=== PATIENT | male | born 1990 | race African-American/Black ===

== ENCOUNTER 2022-05-27 10:06 | Inpatient (IN) | payer OTHER ==
[~2022-05-27] VITALS: Ht 167.6 cm; Wt 77.8 kg
[2022-05-27] MEDS ORDERED: ACET-3385 PO (10:21)
[2022-05-27] MEDS ORDERED: CEPH-558 PO (10:21)
[2022-05-27] MEDS ORDERED: SULF-261 PO (10:21)
[2022-05-27] MEDS ORDERED: IBUP-2071 PO (10:21)
[2022-05-27] MEDS ORDERED: ESCI-8 PO (10:21)
[2022-05-27] MEDS ORDERED: TRAZ-252 PO (10:21)
[2022-05-27] MEDS ORDERED: MICO14CR6 TP (10:21)
[2022-05-27] MEDS ORDERED: 0.9% SODIUM CHLORIDE 10 ML SYRINGE IVP PRN (10:30)
[2022-05-27 10:33] LABS: COVID AG,FIA SOURCE NASAL SWAB
[2022-05-27 10:40] LABS: BASOPHILS % (AUTO) 0.6 % (0.0-2.0); HEMATOCRIT 39.1 % (41-53); HEMOGLOBIN 12.8 g/dL (13.5-17.5); LYMPHOCYTES # (AUTO) 1.7 K/uL (1.0-4.8); LYMPHOCYTES % (AUTO) 19.6 % (22.0-44.0); MEAN CORPUSCULAR HEMOGLOBIN 27.8 pg (26.0-34.0); MEAN CORPUSCULAR HGB CONC 32.7 G/dL (31.0-37.0); MEAN CORPUSCULAR VOLUME 85 fL (80-100); MONOCYTES # (AUTO) 1.2 K/uL (0.1-1.0); MONOCYTES % (AUTO) 13.3 % (2.0-9.0); NEUTROPHILS # (AUTO) 5.4 K/uL (1.8-7.7); NEUTROPHILS % (AUTO) 62.5 % (40.0-70.0); PLATELET COUNT (AUTO) 314 K/uL (150-450); RED BLOOD CELL COUNT(AUTO) 4.59 MIL/uL (4.50-5.90); RED CELL DISTRIBUTION WIDTH 14.4 % (11.5-14.5)
[2022-05-27 10:49] LABS: ANION GAP 12 mmol/L (8-16); CALCIUM, TOTAL 9.7 mg/dL (8.8-10.5); CARBON DIOXIDE 26 mmol/L (22-29); CHLORIDE 95 mmol/L (98-107); CREATININE 1.05 mg/dL (0.60-1.30); GLUCOSE,RANDOM 96 mg/dL (70-110); POTASSIUM 4.4 mmol/L (3.5-5.1); SODIUM SERUM 133 mmol/L (136-145); UREA NITROGEN, BLOOD 14 mg/dL (7-18)
[2022-05-27 10:52] LABS: GLOMERULAR FILTR. RATE CALC > 60 mL/min (>60)
[2022-05-27 10:53] LABS: INR 1.1 (0.9-1.1); PROTHROMBIN TIME 11.4 SEC (9.4-11.6)
[2022-05-27 10:55] LABS: ALANINE AMINOTRANSFERASE 34 U/L (12-78); ALBUMIN 3.2 g/dL (3.4-5.0); ALKALINE PHOSPHATASE 72 U/L (46-116); ASPARTATE AMINOTRANSFERASE 20 U/L (15-37); BILIRUBIN,TOTAL 0.2 mg/dL (0.1-1.0); TOTAL PROTEIN, SERUM 8.2 g/dL (6.4-8.2)
[2022-05-27 11:15] LABS: LACTIC ACID 0.9 mmol/L (0.4-2.0)
[2022-05-27 12:00] LABS: APPEARANCE,URINE CLEAR (CLEAR); BILIRUBIN,URINE NEGATIVE (NEGATIVE); GLUCOSE, URINE (UA) NEGATIVE (NEGATIVE); KETONES,URINE NEGATIVE (NEGATIVE); LEUKOCYTE ESTERASE ,URINE NEGATIVE (NEGATIVE); NITRATE,URINE NEGATIVE (NEGATIVE); OCCULT BLOOD,URINE TRACE (NEGATIVE); PROTEIN,URINE NEGATIVE (NEGATIVE); SPECIFIC GRAVITIY, URINE 1.018 (1.003-1.030); UROBILINOGEN,URINE <=1.0 mg/dL (<=1.0)
[2022-05-27] MEDS ORDERED: FentaNYL CITRATE PF 100 MCG/2 ML VIAL IVP ONE (12:00)
[2022-05-27] MEDS ORDERED: MIDAZOLAM HCL 2 MG/2 ML VIAL IVP ONE (12:00)
[2022-05-27 12:14] LABS: BACTERIA,URINE None Seen /HPF (None Seen); RBC,URINE 0-2 /HPF (0-2); WBC,URINE None Seen /HPF (0-5)
[2022-05-27 13:32] VITALS: BP 124/68
[2022-05-27 15:15] VITALS: BP 120/70
[2022-05-27 20:00] VITALS: BP 109/58
[2022-05-28] MEDS ORDERED: MORPHINE SULFATE 2 MG/ML SYRINGE IVP PRN (02:00)
[2022-05-28] MEDS ORDERED: ALBUTEROL SULFATE 2.5 MG/0.5 ML NEB SOLUTION NEB PRN (02:00)
[2022-05-28] MEDS ORDERED: MAGNESIUM HYDROXIDE SUSPENSION 30 ML UDCUP PO PRN (02:00)
[2022-05-28] MEDS ORDERED: BISACODYL 10 MG RECTAL RECTAL SUPPOSITORY PR PRN (02:00)
[2022-05-28] MEDS ORDERED: ZOLPIDEM TARTRATE 5 MG TABLET PO PRN (02:00)
[2022-05-28] MEDS ORDERED: ONDANSETRON HCL 4 MG/2 ML VIAL IVP PRN (02:00)
[2022-05-28] MEDS ORDERED: ACETAMINOPHEN 325 MG TABLET PO PRN (02:00)
[2022-05-28] MEDS ORDERED: HYDROCODONE/ACETAMINOPHEN 5-325 MG TABLET PO PRN (02:00)
[2022-05-28] MEDS ORDERED: IPRATROPIUM BROMIDE 0.5 MG/2.5 ML NEB SOLUTION NEB PRN (02:00)
[2022-05-28] MEDS ORDERED: IBUPROFEN 800 MG TABLET PO PRN (02:00)
[2022-05-28] MEDS ORDERED: VANCOMYCIN HCL 1.5 GM in DEXTROSE 5%-WATER 250 ML IV ONE (02:30)
[2022-05-28] MEDS ORDERED: SODIUM CHLORIDE 0.9% 500 ML IV ONE (02:57)
[2022-05-28 04:00] VITALS: BP 115/60
[2022-05-28] MEDS: PIPERACILLIN/TAZO 3.375 GM/D5W 50 ML IV SCH ×4 (04:36→20:23)
[2022-05-28 06:55] LABS: ANION GAP 9 mmol/L (8-16); CALCIUM, TOTAL 9.6 mg/dL (8.8-10.5); CARBON DIOXIDE 29 mmol/L (22-29); CHLORIDE 98 mmol/L (98-107); CREATININE 1.25 mg/dL (0.60-1.30); GLUCOSE,RANDOM 98 mg/dL (70-110); POTASSIUM 3.9 mmol/L (3.5-5.1); SODIUM SERUM 136 mmol/L (136-145); UREA NITROGEN, BLOOD 15 mg/dL (7-18)
[2022-05-28 07:09] LABS: GLOMERULAR FILTR. RATE CALC > 60 mL/min (>60)
[2022-05-28] MEDS ORDERED: VANCOMYCIN 1GM/WATER(PEG/NADA) 200 ML IV SCH (08:00)
[2022-05-28] MEDS: DOCUSATE SODIUM 100 MG CAPSULE PO SCH ×2 (08:05→20:23)
[2022-05-28] MEDS: PANTOPRAZOLE SODIUM 40 MG/VIAL IVP SCH (08:05)
[2022-05-28] MEDS: ESCITALOPRAM OXALATE 10 MG TABLET PO SCH (08:05)
[2022-05-28] MEDS: HEPARIN SODIUM,PORCINE 5,000 UNITS/ML VIAL SQ SCH ×3 (08:06→23:41)
[2022-05-28 08:22] VITALS: BP 109/62
[2022-05-28] MEDS: VANCOMYCIN HCL 750 MG in DEXTROSE 5%-WATER 250 ML IV SCH ×2 (16:23→23:41)
[2022-05-28 19:56] VITALS: BP 108/54
[2022-05-28] MEDS: TraZODone HCL 50 MG TABLET PO SCH (20:22)
[2022-05-29] MEDS: PIPERACILLIN/TAZO 3.375 GM/D5W 50 ML IV SCH ×4 (02:28→20:06)
[2022-05-29 05:08] VITALS: BP 97/62
[2022-05-29] MEDS ORDERED: RINGERS SOLUTION,LACTATED 1,000 ML IV ONE (06:30)
[2022-05-29] MEDS ORDERED: LIDOCAINE/PF 1% 30 ML VIAL ONE (06:35)
[2022-05-29] MEDS ORDERED: BUPIVACAINE HCL/PF 0.25% 30 ML VIAL ONE (06:35)
[2022-05-29] MEDS ORDERED: VANCOMYCIN HCL 1 GM/VIAL ONE (06:35)
[2022-05-29] MEDS ORDERED: SODIUM CHLORIDE 0.9% 1,000 ML ONE (06:36)
[2022-05-29] MEDS ORDERED: SODIUM CL IRRIG SOLN BAG 0 ML IRRIG ONE (06:36)
[2022-05-29] MEDS ORDERED: BUPIVACAINE HCL/PF 0.5% 30 ML VIAL ONE (06:56)
[2022-05-29] MEDS ORDERED: THROMBIN, BOVINE 20000 UNITS/VIAL POWDER TP ONE (07:31)
[2022-05-29] MEDS ORDERED: GELATIN SPONGE,ABSORBABLE 50 MM TP ONE (07:31)
[2022-05-29 07:40] LABS: ANION GAP 9 mmol/L (8-16); CALCIUM, TOTAL 10.2 mg/dL (8.8-10.5); CARBON DIOXIDE 26 mmol/L (22-29); CHLORIDE 98 mmol/L (98-107); CREATININE 1.34 mg/dL (0.60-1.30); GLUCOSE,RANDOM 84 mg/dL (70-110); POTASSIUM 4.1 mmol/L (3.5-5.1); SODIUM SERUM 133 mmol/L (136-145); UREA NITROGEN, BLOOD 13 mg/dL (7-18); VANCOMYCIN,RANDOM 16.4 mcg/mL (25.0-50.0)
[2022-05-29 07:43] LABS: GLOMERULAR FILTR. RATE CALC > 60 mL/min (>60)
[2022-05-29] MEDS: HEPARIN SODIUM,PORCINE 5,000 UNITS/ML VIAL SQ SCH ×3 (08:00→23:12)
[2022-05-29 08:25] VITALS: BP 139/84
[2022-05-29] MEDS: ESCITALOPRAM OXALATE 10 MG TABLET PO SCH (08:31)
[2022-05-29] MEDS: DOCUSATE SODIUM 100 MG CAPSULE PO SCH ×2 (08:32→20:06)
[2022-05-29] MEDS: PANTOPRAZOLE SODIUM 40 MG/VIAL IVP SCH (08:32)
[2022-05-29] MEDS: VANCOMYCIN HCL 750 MG in DEXTROSE 5%-WATER 250 ML IV SCH ×3 (08:35→23:11)
[2022-05-29] MEDS ORDERED: PROPOFOL 1% 20 ML VIAL IVP ONE (12:00)
[2022-05-29 15:30] VITALS: BP 100/43
[2022-05-29 19:53] VITALS: BP 103/59
[2022-05-29] MEDS: TraZODone HCL 50 MG TABLET PO SCH (20:06)
[2022-05-30] MEDS: PIPERACILLIN/TAZO 3.375 GM/D5W 50 ML IV SCH ×4 (02:28→20:11)
[2022-05-30 04:56] VITALS: BP 103/58
[2022-05-30 06:23] LABS: ANION GAP 11 mmol/L (8-16); CALCIUM, TOTAL 9.8 mg/dL (8.8-10.5); CARBON DIOXIDE 27 mmol/L (22-29); CHLORIDE 99 mmol/L (98-107); CREATININE 1.23 mg/dL (0.60-1.30); GLUCOSE,RANDOM 87 mg/dL (70-110); SODIUM SERUM 137 mmol/L (136-145); UREA NITROGEN, BLOOD 14 mg/dL (7-18)
[2022-05-30 06:25] LABS: GLOMERULAR FILTR. RATE CALC > 60 mL/min (>60)
[2022-05-30] MEDS: VANCOMYCIN HCL 750 MG in DEXTROSE 5%-WATER 250 ML IV SCH ×2 (08:10→16:12)
[2022-05-30] MEDS: HEPARIN SODIUM,PORCINE 5,000 UNITS/ML VIAL SQ SCH ×2 (08:10→16:00)
[2022-05-30] MEDS: ESCITALOPRAM OXALATE 10 MG TABLET PO SCH (08:11)
[2022-05-30] MEDS: DOCUSATE SODIUM 100 MG CAPSULE PO SCH ×3 (08:11→20:17)
[2022-05-30] MEDS: PANTOPRAZOLE SODIUM 40 MG/VIAL IVP SCH (08:11)
[2022-05-30 08:55] VITALS: BP 151/71
[2022-05-30 16:24] VITALS: BP 112/55
[2022-05-30] MEDS: TraZODone HCL 50 MG TABLET PO SCH (20:11)
[2022-05-30 20:15] VITALS: BP 116/49
[2022-05-31] MEDS: VANCOMYCIN HCL 750 MG in DEXTROSE 5%-WATER 250 ML IV SCH ×4 (00:29→23:30)
[2022-05-31 04:20] VITALS: BP 114/49
[2022-05-31] MEDS: PIPERACILLIN/TAZO 3.375 GM/D5W 50 ML IV SCH ×4 (05:11→20:49)
[2022-05-31 07:42] VITALS: BP 105/61
[2022-05-31] MEDS: HEPARIN SODIUM,PORCINE 5,000 UNITS/ML VIAL SQ SCH ×5 (08:34→23:29)
[2022-05-31] MEDS: ESCITALOPRAM OXALATE 10 MG TABLET PO SCH (08:35)
[2022-05-31] MEDS: DOCUSATE SODIUM 100 MG CAPSULE PO SCH (08:36)
[2022-05-31 08:40] LABS: BASOPHILS % (AUTO) 0.2 % (0.0-2.0); EOSINOPHILS % (AUTO) 5.2 % (1.0-6.0); HEMATOCRIT 38.9 % (41-53); HEMOGLOBIN 12.7 g/dL (13.5-17.5); LYMPHOCYTES # (AUTO) 2.7 K/uL (1.0-4.8); LYMPHOCYTES % (AUTO) 32.4 % (22.0-44.0); MEAN CORPUSCULAR HGB CONC 32.6 G/dL (31.0-37.0); MEAN CORPUSCULAR VOLUME 86 fL (80-100); MONOCYTES # (AUTO) 0.8 K/uL (0.1-1.0); MONOCYTES % (AUTO) 9.1 % (2.0-9.0); NEUTROPHILS # (AUTO) 4.5 K/uL (1.8-7.7); NEUTROPHILS % (AUTO) 53.1 % (40.0-70.0); PLATELET COUNT (AUTO) 390 K/uL (150-450); RED BLOOD CELL COUNT(AUTO) 4.53 MIL/uL (4.50-5.90); RED CELL DISTRIBUTION WIDTH 14.3 % (11.5-14.5)
[2022-05-31 09:05] LABS: ALANINE AMINOTRANSFERASE 54 U/L (12-78); ALBUMIN 3.2 g/dL (3.4-5.0); ALKALINE PHOSPHATASE 59 U/L (46-116); ANION GAP 5 mmol/L (8-16); ASPARTATE AMINOTRANSFERASE 28 U/L (15-37); BILIRUBIN,TOTAL 0.3 mg/dL (0.1-1.0); CALCIUM, TOTAL 9.6 mg/dL (8.8-10.5); CARBON DIOXIDE 26 mmol/L (22-29); CHLORIDE 102 mmol/L (98-107); CREATININE 1.23 mg/dL (0.60-1.30); GLUCOSE,RANDOM 75 mg/dL (70-110); POTASSIUM 4.1 mmol/L (3.5-5.1); SODIUM SERUM 133 mmol/L (136-145); TOTAL PROTEIN, SERUM 8.2 g/dL (6.4-8.2); UREA NITROGEN, BLOOD 12 mg/dL (7-18)
[2022-05-31 09:10] LABS: GLOMERULAR FILTR. RATE CALC > 60 mL/min (>60)
[2022-05-31 09:30] LABS: VANCOMYCIN,RANDOM 16.5 mcg/mL (25.0-50.0)
[2022-05-31] MEDS: PANTOPRAZOLE SODIUM 40 MG/VIAL IVP SCH (10:17)
[2022-05-31 15:53] VITALS: BP 114/51
[2022-05-31 19:42] VITALS: BP 136/59
[2022-05-31] MEDS: TraZODone HCL 50 MG TABLET PO SCH (20:48)
[2022-05-31] MEDS ORDERED: SODIUM CHLORIDE 0.9% 500 ML IV ONE (20:51)
[2022-06-01] MEDS: PIPERACILLIN/TAZO 3.375 GM/D5W 50 ML IV SCH ×2 (02:52→10:00)
[2022-06-01 04:11] VITALS: BP 108/59
[2022-06-01 07:01] LABS: ANION GAP 10 mmol/L (8-16); CALCIUM, TOTAL 9.8 mg/dL (8.8-10.5); CARBON DIOXIDE 25 mmol/L (22-29); CHLORIDE 103 mmol/L (98-107); CREATININE 1.21 mg/dL (0.60-1.30); GLUCOSE,RANDOM 111 mg/dL (70-110); POTASSIUM 3.6 mmol/L (3.5-5.1); SODIUM SERUM 138 mmol/L (136-145); UREA NITROGEN, BLOOD 12 mg/dL (7-18)
[2022-06-01 07:09] LABS: GLOMERULAR FILTR. RATE CALC > 60 mL/min (>60)
[2022-06-01] MEDS: HEPARIN SODIUM,PORCINE 5,000 UNITS/ML VIAL SQ SCH (08:00)
[2022-06-01 08:10] VITALS: BP 104/51
[2022-06-01] MEDS: VANCOMYCIN HCL 750 MG in DEXTROSE 5%-WATER 250 ML IV SCH (08:12)
[2022-06-01] MEDS: ESCITALOPRAM OXALATE 10 MG TABLET PO SCH (08:12)
[2022-06-01] MEDS: PANTOPRAZOLE SODIUM 40 MG/VIAL IVP SCH (08:12)
[2022-06-01] MEDS ORDERED: SULFAMETHOX/TRIMETH DS 800-160 MG/TABLET PO SCH (21:00)
== END 2022-06-01 12:00 | DRG 571 ==
LOC: EMS 10:08 → 6S 12:45
PROVIDERS: ADMIT Hospitalist; ATTEND Hospitalist
PROC: 0JBQ0ZZ Excision of Right Foot Subcutaneous Tissue and Fascia, Open Approach (ICD-10-PCS; principal; 2022-06-01)
DX: L02.611 Cutaneous abscess of right foot (principal); E87.1 Hypo-osmolality and hyponatremia; T63.301A Toxic effect of unspecified spider venom, accidental (unintentional), initial encounter; Z20.822 Contact with and (suspected) exposure to COVID-19; Y92.89 Other specified places as the place of occurrence of the external cause; Z79.899 Other long term (current) drug therapy
CPT/HCPCS: 80048; 80053; 80202; 81001; 83605; 85025; 85610; 87070; 87075; 87081; 87186; 87205; 88304; 93005; 99285; C9113; J1644; J2250; J2543; J2704; J3010; J3370; J3490; J7030; J7040; J7060; J7120; Q9967